=== PATIENT | female | born 1995 | race American Indian/Alaskan Native ===

== ENCOUNTER 2018-10-02 22:11 | Emergency (ER) | payer SELFPAY ==
[2018-10-02 22:23] VITALS: BP 118/83
[2018-10-02] MEDS ORDERED: TYLENOL PO ONE (23:39)
[2018-10-03 01:44] LABS: HCG Qualitative,Urine Negative (Negative)
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
[2018-10-03 03:16] LABS: Basophils % (Auto) 0.4 % (0.0-1.8); Eosinophils # (Auto) 0.1 K/mm3 (0.0-0.4); Eosinophils % (Auto) 1.4 % (0.0-4.3); Hematocrit 38.3 % (30.3-42.9); Hemoglobin 12.8 gm/dl (10.1-14.3); Lymphocytes # (Auto) 2.5 K/mm3 (1.2-5.4); Lymphocytes % (Auto) 38.3 % (13.4-35.0); Mean Corpuscular HGB Conc 34 % (30-34); Mean Corpuscular Volume 92 fl (79-97); Monocytes # (Auto) 0.5 K/mm3 (0.0-0.8); Monocytes % (Auto) 8.1 % (0.0-7.3); Platelet Count 172 K/mm3 (140-440); Red Blood Count 4.17 M/mm3 (3.65-5.03); Red Cell Distribution Width 13.6 % (13.2-15.2)
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
[2018-10-03 04:03] LABS: BUN/Creatinine Ratio 9; Blood Urea Nitrogen 10 mg/dL (7-17)
[2018-10-03 04:04] LABS: Alanine Aminotransferase 33 units/L (7-56); Albumin 4.6 g/dL (3.9-5); Hemolysis Index 3
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
== END 2018-10-03 06:00 | disposition other institution (70) ==
LOC: ED 22:11
DX: J98.2 Interstitial emphysema (principal); J93.9 Pneumothorax, unspecified; M62.838 Other muscle spasm; Z91.018 Allergy to other foods; V89.2XXA Person injured in unspecified motor-vehicle accident, traffic, initial encounter; Y93.89 Activity, other specified; Y92.89 Other specified places as the place of occurrence of the external cause; Y99.8 Other external cause status
CPT/HCPCS: 36415; 70450; 71046; 71250; 72125; 80053; 81025; 84484; 84703; 85025